=== PATIENT | female | born 1945 | race Caucasian/White ===

== ENCOUNTER → 2019-05-06 | Outpatient (CLI) | payer OTHER ==
[~2019-05-06] MED LIST: ALBUTEROL INHALER; ALLOPURINOL 10100 M1 PO; AMBIEN 10 MG TA10 MG PO; AMITIZA 24 MCG24 MC1 PO; APIDRA SUBQ; APPEAREX2500 MCG PO; ARIMIDEX; ARIMIDEX PO; AROMASIN25 MG; AROMASIN25 MG PO; ASMANEX220 MC1 INH; ASPIRIN81 M2 PO; BENICAR HCT 401 EACH PO; BIOFREEZE PAI3840 GM TP; CALCIUM-MAG-ZI1 EACH; CHROMIUM PIC1000 MCG; CINNAMON PO; CIPROFLOXACIN500 M1 PO; COCONUT OIL; COLACE100 MG PO; COLESTIPOL HCL1 G1 PO; COUGH PO; COUGH SYRUP118 ML PO; CYMBALTA30 MG PO; CYMBALTA60 MG PO; DARVOCET-N 1001 EAC1 PO; DARVOCET-N 1001 EACH PO; DULCOLAX5 MG PO; ESGIC PO; FLONASE 0.05%50 MCG NASAL; GINSENG PO; GLUCOPHAGE1000 MG PO; GLUCOPHAGE500 MG PO; HYZAAR 100-251 EACH PO; IRON236 MG PO; JANUVIA100 MG PO; KEFLEX500 MG PO; LAMICTAL; LASIX 20 MG TAB20 MG PO; LASIX 40 MG TAB40 M1; LEVEMIR; LEVEMIR SUBQ; LEVOTHYROXIN0.125 M2 PO; LEVOTHYROXIN0.137 M1 PO; LIDODERM 5%1 PATCH; LIPITOR20 MG PO; LIPITOR40 MG PO; LISINOPRIL2.5 MG PO; LISINOPRIL5 MG PO; LOPRESSOR 50 MG50 M1 PO; LUNESTA3 MG PO; LYRICA 50 MG50 MG PO; LYRICA 75 MG CA75 MG PO; LYRICA150 MG PO; MEGARED OMEGA-1 EAC1 PO; METFORMIN HCL500 MG; MIRALAX PO; MYSOLINE PO; NAPROSYN PO; NEPHROCAPS SOFT1 CAP PO; NEURONTIN 300300 M1 PO; NITROGLYCERIN0.4 MG SL; NORCO 5-325 TA1 EAC1 PO; NORFLEX100 MG PO; NOVOLOG100 UNIT/1 SQ; NUVIGIL PO; ONE-A-DAY WOMENS PO; OXYCONTIN10 M1 PO; PAXIL10 MG PO; PERCOCET 5-3251 EACH PO; PERCOCET 7.5-31 EACH PO; PLEXUS BIO CLEANSE; PLEXUS PRO BIO 5; PLEXUS SLIM; PREMARIN VAGI42.5 G1 TOP; PREPARATION H26 GM CERVICAL; PRIMIDONE50 MG PO; ROBAXIN 750 MG750 M1 PO; ROXICODONE5 M1 PO; ROZEREM 8 MG TAB8 MG; ROZEREM 8 MG TAB8 MG PO; SALINE NOSE SPRAY; SAVELLA100 MG PO; SAVELLA25 MG PO; SAVELLA50 MG; SAVELLA50 MG PO; SENNA-LAX8.6 MG PO; SENNAKOT PO; SKELAXIN 800 M800 M1; SKELAXIN 800 M800 M1 PO; SLOW-MAG64 MG PO; SORE T PO; SYNTHROID PO; TEGRETOL200 MG PO; TROKENDI XR50 MG PO; ULTRAM 50MG TAB50 MG PO; VENTOLIN HFA 1818 GM; VENTOLIN HFA 1818 GM INH; VICTOZA0.6 MG/0.1 SUBQ; VIT B12 IM; VITAMIN D 5050000 I1 PO; VITAMIN E400 UNIT PO; VOLTAREN GEL 1100 G1; VOLTAREN GEL 1100 G1 TOP; VYVANSE10 MG PO; VYVANSE50 MG PO; XANAX 0.5 MG0.5 M1; ZANAFLEX4 M1 PO; ZANAFLEX4 MG PO; ZOCOR80 MG PO; ZOFRAN4 MG PO; [UNRECOGNIZED DRUG - CODE]; [UNRECOGNIZED DRUG - OTHER]; [UNRECOGNIZED DRUG - OTHER]
== END ==
LOC: M.RAD 09:00
DX: M85.89 Other specified disorders of bone density and structure, multiple sites (principal); Z78.0 Asymptomatic menopausal state; Z85.3 Personal history of malignant neoplasm of breast